=== PATIENT | male | born 1940 | race Caucasian/White ===

== ENCOUNTER → 2017-07-28 | Outpatient (CLI) | payer MEDICARE, OTHER ==
--- NOTE | 2017-07-28 13:06 | RAD ---
2 views left shoulder radiograph 07/28/2017 Clinical indication: Left shoulder pain for months with no known injury. Comparison: None. Findings: There is a left chest wall cardiac connection device and median sternotomy wires. Partial visualization of a thoracic stimulator device with leads overlying the mid thoracic spine. No acute fracture or traumatic malalignment of the glenohumeral articulation. There is mild left glenohumeral arthrosis with osteophyte formation. 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 Impression: 1. Mild left glenohumeral arthrosis without radiographic evidence of acute osseous abnormality. 2. 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
== END | disposition home or self-care (01) ==
LOC: RAD 11:30
PROVIDERS: ATTEND Orthopaedic Surgery
DX: M19.012 Primary osteoarthritis, left shoulder (principal)
CPT/HCPCS: 73030